=== PATIENT | male | born 2000 | race Two or more races ===

== ENCOUNTER 2021-02-21 17:31 | Emergency (ER) | payer OTHER ==
[~2021-02-21] VITALS: Ht 175.3 cm; Wt 64.8 kg
--- NOTE | 2021-02-21 17:53 | NUR ---
RT LEG PAIN (HIP TO FOOT) X 2 DAYS. WORKS OUT AT A [employer]. PALLET FELL ONTO RT THIGH WHILE AT WORK AFTER PAIN STARTED; PAIN WORSENED. WAS SEEN AT [facility] TODAY. CY RIVERA TO BEDSIDE FOR EVALUATION. ATTACHED TO MONITORS. MOANING IN PAIN. VSS.
[2021-02-21] MEDS ORDERED: METHOCARBAMOL 500 MG TABLET ONE (17:56)
[2021-02-21] MEDS ORDERED: ACETAMINOPHEN 500 MG TABLET ONE (17:56)
[2021-02-21] MEDS ORDERED: ACETAMINOPHEN 500 MG TABLET PO ONE (18:00)
[2021-02-21] MEDS ORDERED: METHOCARBAMOL 750 MG TABLET PO ONE (18:00)
--- NOTE | 2021-02-21 18:42 | NUR ---
PT RESTING WITH EYES CLOSED. VSS. NADN. AWAITNG US.
--- NOTE | 2021-02-21 18:45 | NUR ---
BEDSIDE REPORT FROM ARLENE FREDERICK, PT CARE TRANSFERRED AT THIS TIME. NAD, RESTING ON GURNEY, APPEARS COMFORTABLE, WCTM. DENIES ADDITIONAL QUESTIONS OR NEEDS AT THIS TIME.
[2021-02-21 19:50] VITALS: BP 117/72
--- NOTE | 2021-02-21 19:50 | NUR ---
pt laying on gurney at this time, requesting pain meds, erp aware, no new orders at this time. pt nad, waiting for records from [facility]. nam. vss.
== END 2021-02-21 21:22 | disposition home or self-care (01) ==
LOC: ED 18:01
DX: G89.29 Other chronic pain (principal); M79.651 Pain in right thigh; M79.661 Pain in right lower leg; M79.89 Other specified soft tissue disorders
CPT/HCPCS: 99284